=== PATIENT | female | born 1955 | race African-American/Black ===

== ENCOUNTER 2019-09-26 18:30 | Emergency (ER) | payer MEDICAID ==
[~2019-09-26] VITALS: Ht 160 cm; Wt 60.8 kg
--- NOTE | 2019-09-26 20:40 | NUR ---
Patient tolerated meal with no distress noted.
--- NOTE | 2019-09-26 21:41 | NUR ---
Patient given written and verbal discharge instructions. Patient verbalizes understanding of instructions. Patient is ambulatory with steady gait. Refuses offer of residential placement. Patient given list of available shelters in surrounding area.
[2019-09-26 21:42] VITALS: BP 145/88
== END 2019-09-26 21:42 | disposition home or self-care (01) ==
LOC: ER 18:30
DX: S40.011A Contusion of right shoulder, initial encounter (principal); S60.211A Contusion of right wrist, initial encounter; J45.909 Unspecified asthma, uncomplicated; E11.9 Type 2 diabetes mellitus without complications; Z59.0 Homelessness; W19.XXXA Unspecified fall, initial encounter; Y93.89 Activity, other specified; Y92.89 Other specified places as the place of occurrence of the external cause; Y99.8 Other external cause status
CPT/HCPCS: 73030; 73110

== ENCOUNTER 2019-09-27 19:51 | Emergency (ER) | payer MEDICAID ==
[~2019-09-27] VITALS: Ht 165.1 cm; Wt 61.2 kg
--- NOTE | 2019-09-27 19:55 | NUR ---
PATIENT BIB [facility] FOR GENERALIZED BODY PAIN, PT IS ALERT AND STATES HS PAIN ON RIGHT SIDE OF BODY. DR. NAVARRO AT BEDSIDE FOR MSE.
[2019-09-27] MEDS ORDERED: HYDROCODONE/APAP 5-325MG TABLET PO ONE (20:00)
[2019-09-27] MEDS ORDERED: HYDROCODONE/APAP 5-325MG TABLET ONE (20:01)
[2019-09-27 22:37] VITALS: BP 137/94
--- NOTE | 2019-09-27 22:38 | NUR ---
Patient discharged to home in stable conditon. Written and verbal after care instructions given. Patient verbalizes understanding of instructions. Denies any homelessness, states she has a place in [place] that she stays at. Patient ambulated with stable gait.
== END 2019-09-27 22:38 | disposition home or self-care (01) ==
LOC: ER 19:55
DX: F10.129 Alcohol abuse with intoxication, unspecified (principal); M25.531 Pain in right wrist; J45.909 Unspecified asthma, uncomplicated; E11.9 Type 2 diabetes mellitus without complications; Z59.0 Homelessness; Y90.6 Blood alcohol level of 120-199 mg/100 ml
CPT/HCPCS: 36415; 73110; 99284; G0480; A4663

== ENCOUNTER 2019-09-28 21:31 | Emergency (ER) | payer MEDICAID ==
[~2019-09-28] VITALS: Ht 162.6 cm; Wt 67.1 kg
[2019-09-28] MEDS ORDERED: ACETAMINOPHEN ES 500 MG TABLET ONE (21:58)
[2019-09-28] MEDS ORDERED: ACETAMINOPHEN ES 500 MG TABLET PO ONE (22:00)
--- NOTE | 2019-09-28 22:23 | NUR ---
Patient given written and verbal discharge instructions. Patient verbalizes understanding of instructions. Patient is ambulatory with steady gait. Refuses offer of snf placement. Patient given list of available shelters in surrounding area. Refused to papers
[2019-09-28 22:33] VITALS: BP 121/71
== END 2019-09-28 22:33 | disposition home or self-care (01) ==
LOC: ER 21:31
DX: F10.20 Alcohol dependence, uncomplicated (principal); M25.531 Pain in right wrist; M25.511 Pain in right shoulder; R05 Cough; J45.909 Unspecified asthma, uncomplicated; E11.9 Type 2 diabetes mellitus without complications; Z76.5 Malingerer [conscious simulation]; W19.XXXA Unspecified fall, initial encounter; Y93.89 Activity, other specified; Y92.89 Other specified places as the place of occurrence of the external cause; Y99.8 Other external cause status; Y90.9 Presence of alcohol in blood, level not specified
CPT/HCPCS: A4663; A9150

== ENCOUNTER 2019-09-29 01:31 | Emergency (ER) | payer MEDICAID ==
[~2019-09-29] VITALS: Ht 162.6 cm; Wt 67.1 kg
--- NOTE | 2019-09-29 01:34 | NUR ---
PATIENT WAS BROUGHT IN BY [employer] FOR MEDICAL CLEARANCE.
[2019-09-29 02:08] LABS: CARBON DIOXIDE 25 mmol/L (21-32); CHLORIDE 95 mmol/L (98-107); CREATININE 1.3 mg/dL (0.6-1.3); GLUCOSE 87 mg/dL (74-106); POTASSIUM 3.7 mmol/L (3.5-5.1); UREA NITROGEN, BLOOD 12 mg/dL (7-18)
[2019-09-29 02:14] LABS: ACETAMINOPHEN < 2.0 ug/mL (10-30); ALANINE AMINOTRANSFERASE 20 U/L (14-59); ALKALINE PHOSPHATASE 96 U/L (50-136); ASPARTATE AMINOTRANSFERASE 19 U/L (15-37); BILIRUBIN,DIRECT 0.1 mg/dL (0.0-0.2); BILIRUBIN,TOTAL 0.3 mg/dL (0.2-1.0); TOTAL PROTEIN, SERUM 8.2 g/dL (6.4-8.2)
[2019-09-29] MEDS ORDERED: IV NORMAL SALINE 1000 ML BAG IV ONE ×2 (02:15)
[2019-09-29 02:19] LABS: ETHANOL 165 MG/DL (0-0)
[2019-09-29 02:37] LABS: BASOPHILS % (AUTO) 0.3 % (0.0-2.0); EOSINOPHILS % (AUTO) 0.4 % (0.0-7.0); HEMATOCRIT 39.2 % (31.2-41.9); HEMOGLOBIN 13.3 g/dL (10.9-14.3); LYMPHOCYTES # (AUTO) 1.7 K/uL (20.0-40.0); LYMPHOCYTES % (AUTO) 46.7 % (20.5-51.5); MEAN CORPUSCULAR HEMOGLOBIN 32.6 uug (24.7-32.8); MEAN CORPUSCULAR HGB CONC 34 g/dL (32.3-35.6); MEAN CORPUSCULAR VOLUME 96.1 fL (75.5-95.3); MONOCYTES # (AUTO) 0.6 K/uL (2.0-10.0); MONOCYTES % (AUTO) 15.2 % (0.0-11.0); NEUTROPHILS # (AUTO) 1.4 K/uL (1.8-8.9); NEUTROPHILS % (AUTO) 37.4 % (38.5-71.5); PLATELET COUNT (AUTO) 212 K/uL (179-408); RED BLOOD CELL COUNT(AUTO) 4.08 MIL/uL (3.63-4.92); WHITE BLOOD COUNT (AUTO) 3.6 K/uL (3.8-11.8)
--- NOTE | 2019-09-29 02:41 | NUR ---
[employer] LEFT. PATIENT IN BED AWAKE ALERT NOT IN ANY DISTRESS. NO SI. NO HI. WILL CONTINUE TO MONITOR.
--- NOTE | 2019-09-29 03:00 | NUR ---
Patient is resting comfortably in bed with eyes closed
--- NOTE | 2019-09-29 04:19 | NUR ---
Pt medically cleared by Dr. Groves.
--- NOTE | 2019-09-29 04:26 | NUR ---
DADA CALLED LEFT MESSAGE WAITING FOR CALLBACK.
--- NOTE | 2019-09-29 05:07 | NUR ---
Called Val Ewing of crisis team. left message to call back
[2019-09-29 06:15] LABS: LYMPHOCYTES % (MANUAL) 51 % (20-40); MONOCYTES % (MANUAL) 9 % (2-10); NEUTROPHILS % (MANUAL) 40 % (42-75)
--- NOTE | 2019-09-29 06:25 | NUR ---
Patient is resting comfortably in bed with eyes closed.
--- NOTE | 2019-09-29 06:47 | NUR ---
Val Ewing of crisis team at bedside for patient eval.
--- NOTE | 2019-09-29 07:40 | NUR ---
Patient discharged to home in stable conditon. Written and verbal after care instructions given. Patient verbalizes understanding of instructions.pt walks in steady gait, axox4. pt said will use the tap card to go home to her . Addendum: 09/29/19 at 0847 by SHONDA breakfast provided for pt.
[2019-09-29 08:47] VITALS: BP 112/81
== END 2019-09-29 07:40 | disposition home or self-care (01) ==
LOC: ER 01:36
DX: F29 Unspecified psychosis not due to a substance or known physiological condition (principal); F10.129 Alcohol abuse with intoxication, unspecified; E87.1 Hypo-osmolality and hyponatremia; E87.8 Other disorders of electrolyte and fluid balance, not elsewhere classified; E05.00 Thyrotoxicosis with diffuse goiter without thyrotoxic crisis or storm; J45.909 Unspecified asthma, uncomplicated; E11.9 Type 2 diabetes mellitus without complications; F17.290 Nicotine dependence, other tobacco product, uncomplicated; Y90.6 Blood alcohol level of 120-199 mg/100 ml
CPT/HCPCS: 36415; 71045; 80048; 80076; 83735; 84484; 85007; 85025; 93005; 99284; 99406; G0480 ×2; G0481; 70030-TC; A4663; J7030

== ENCOUNTER 2019-09-29 19:13 | Emergency (ER) | payer MEDICAID ==
[~2019-09-29] VITALS: Ht 165.1 cm; Wt 63.5 kg
--- NOTE | 2019-09-29 19:17 | NUR ---
Patient BIB [facility], she is intoxicated and complains of R arm pain. Patient is able to ambulate with stable gait, follow instructions. No s/s of injury are noted.
[2019-09-29] MEDS ORDERED: ACETAMINOPHEN ES 500 MG TABLET PO ONE (20:15)
--- NOTE | 2019-09-29 21:01 | NUR ---
Patient in bed, no acute distress noted. VSS
--- NOTE | 2019-09-29 21:37 | NUR ---
Patient discharged to home in stable conditon. Written and verbal after care instructions given. Patient verbalizes understanding of instructions. Ambulated from ER with stable gait. All belongings with patient
[2019-09-29 21:39] VITALS: BP 124/80
== END 2019-09-29 21:41 | disposition home or self-care (01) ==
LOC: ER 19:14
DX: S13.4XXA Sprain of ligaments of cervical spine, initial encounter (principal); S49.91XA Unspecified injury of right shoulder and upper arm, initial encounter; S49.92XA Unspecified injury of left shoulder and upper arm, initial encounter; J45.909 Unspecified asthma, uncomplicated; E11.9 Type 2 diabetes mellitus without complications; W10.9XXA Fall (on) (from) unspecified stairs and steps, initial encounter; Y93.89 Activity, other specified; Y92.89 Other specified places as the place of occurrence of the external cause; Y99.8 Other external cause status
CPT/HCPCS: 70450; 72125; A4663